=== PATIENT | female | born 1980 | race Caucasian/White ===

== ENCOUNTER 2021-10-28 23:08 | Emergency (ER) | payer MEDICAID, SELFPAY | END 2021-10-29 00:08 | disposition left against medical advice (07) | PROVIDERS: Emergency Provider Emergency Medicine | DX: Z20.822 Contact with and (suspected) exposure to COVID-19 (principal) ==

== ENCOUNTER 2021-10-29 00:29 | Emergency (ER) | payer MEDICAID, SELFPAY ==
--- NOTE | ~2021-10-29 | XR_ITS ---
EXAMINATION: XR CHEST CLINICAL INFORMATION: Shortness of breath COMPARISON: None TECHNIQUE: Frontal view of the chest was obtained. FINDINGS: The lungs are well expanded. There is no focal consolidation, edema, or effusion. No pneumothorax. The cardiomediastinal silhouette is within normal limits. No acute osseous abnormality. XR/XR chest 1V IMPRESSION: Clear lungs.
[2021-10-29 00:33] VITALS: BP 181/100; PULSE 88; RESP 18; TEMP 36.6; O2SAT 100; BMI 43.8
[2021-10-29 00:58] LABS: COVID-19 Test Negative (Negative)
--- NOTE | 2021-10-29 01:46 | ED.GENADULT ---
HPI - General Adult General Chief complaint: General Medical Stated complaint: Covid exposure/no symptoms Time Seen by Provider: 10/29/21 01:46 Source: patient Mode of arrival: ambulatory History of Present Illness HPI narrative: 41-year-old female who presents after exposure to who is COVID positive but otherwise is asymptomatic. Related Data Allergies Allergy/AdvReac Type Severity Reaction Status Date / Time No Known Allergies Allergy Verified 10/29/21 00:32 Review of Systems Review of Systems: Pertinent positives and negatives as stated in HPI 10 point review of systems is otherwise negative PMFSH Past Medical History Source: nursing notes reviewed Social History Social History Advance Directives: No Physical Exam Vital Signs: Vital Signs: Last Vital Signs Temp 98 F 10/29/21 00:33 Pulse 88 10/29/21 00:33 Resp 18 10/29/21 00:33 BP 181/100 H 10/29/21 00:33 Pulse Ox 100 10/29/21 00:33 BMI result Body Mass Index 43.8 VITAL SIGNS: Reviewed. GENERAL: Well developed, well nourished, in no acute distress. HEAD: Normocephalic/atraumatic EYES: PERRLA, EOMI LUNGS: No audible wheeze, no tachypnea SpO2<100> CARDIOVASCULAR: Regular rate and rhythm without noted murmurs ABDOMEN: Soft, non-tender, non-distended with bowel sounds NEUROLOGIC: Alert and oriented x 4 Course Course Course Narrative: 41-year-old female with history and clinical presentation consistent with close COVID-19 exposure. Patient is otherwise asymptomatic and on review all investigations is negative for acute findings. Discussed with patient prudent retesting time frame, but strongly encouraged patient to consider herself positive given the close COVID-19 exposure that she has experienced. Medical Decision Making Lab Data Labs: Lab Results 10/29/21 Range/Units 00:38 COVID-19 (CECY) Negative (Negative) COVID-19 Clin Com See Note Discharge Plan Discharge Clinical Impression: Lab test negative for COVID-19 virus, Close exposure to COVID-19 virus Patient Disposition: Home, Self-Care Instructions: COVID-19 (Coronavirus Disease 2019) (ED) Additional Instructions: Please follow the current CDC guidelines for COVID 19 exposure. Recommend that you get retested in 3-4 days.
== END 2021-10-29 01:55 | disposition home or self-care (01) ==
PROVIDERS: Emergency Provider Student in an Organized Health Care Education/Training Program
DX: Z20.822 Contact with and (suspected) exposure to COVID-19 (principal)
CPT/HCPCS: 36415; 71045; 87635; 99283

== ENCOUNTER 2021-10-30 11:59 | Emergency (ER) | payer MEDICAID, SELFPAY ==
[2021-10-30 12:13] VITALS: BP 154/98; PULSE 90; RESP 18; TEMP 36.4; O2SAT 96; BMI 29.0
--- NOTE | 2021-10-30 12:29 | ED_ITS ---
HPI - General Adult General Chief complaint: General Medical Stated complaint: covid test chest tightness sore throat Time Seen by Provider: 10/30/21 12:19 Source: patient Mode of arrival: ambulatory Limitations: no limitations History of Present Illness HPI narrative: 41-year-old female here with reports of headache, sore throat, cough some chest tightness for several days. Patient tells me her tested positive for COVID. She was seen here on October 29 and tested negative for COVID. She is here for a 2nd test. Tells me she is having continued symptoms. Of note the patient had a chest x-ray and a COVID test on the which are both negative. Patient has received a [employer] vaccine. No shortness of breath, fevers, chills, vomiting, diarrhea, abdominal pain. Has a history of asthma but ran out of her inhaler Related Data Allergies Allergy/AdvReac Type Severity Reaction Status Date / Time No Known Allergies Allergy Verified 10/29/21 00:32 Review of Systems Review of Systems: Yes all other systems are reviewed and are negative Constitutional: Constitutional: Reports no additional constitutional complaints, Denies body ache(s), Denies chills, Denies fever(s), Reports headache(s) and Denies weakness Eyes: Eyes: Reports no additional eye complaints and Denies change in vision ENT: Reports system reviewed and no additional complaints, except as documented, Denies dizziness, Reports headache(s), Denies nasal congestion, Denies nasal discharge, Denies neck pain and Reports sore throat Cardiovascular: Cardiovascular: Reports no additional cardiovascular complaints, Reports chest pain (Tightness), Denies leg edema and Denies dyspnea Respiratory: Respiratory: Reports no additional respiratory complaints, Reports cough and Denies dyspnea Gastrointestinal: Gastrointestinal: Reports no additional gastrointestinal complaints, Denies abdominal pain, Denies diarrhea, Denies nausea and Denies vomiting Genitourinary: Genitourinary: Reports no additional female genitourinary complaints and Denies urinary incontinence Musculoskeletal: Musculoskeletal: Reports no additional musculoskeletal complaints, Denies back pain, Denies arthralgias, Denies joint swelling, Denies neck pain, Denies numbness and Denies tingling Integumentary/Breasts: Skin/Breast: Reports system reviewed and no additional complaints, except as docu and Denies rash Neurologic: Reports system reviewed and no additional complaints, except as documented, Denies Abnormal speech present, Denies dizziness, Reports headache(s), Denies numbness, Denies tingling and Denies weakness PMFSH Past Medical History Attestation statement: The following information was validated with the patient. Source: old records reviewed and nursing notes reviewed Medical History No known health problems Social History Social History Advance Directives: No Advance Directives Information Provided: No Patient : No Physical Exam Vital Signs: Vital Signs: Last Vital Signs Temp 97.5 F 10/30/21 12:13 Pulse 90 10/30/21 12:13 Resp 18 10/30/21 12:13 BP 154/98 H 10/30/21 12:13 Pulse Ox 96 10/30/21 12:13 BMI result Body Mass Index 29.0 Const: General: cooperative, healthy appearing, comfortable and no acute distress Orientation/consciousness: patient oriented x3 Limitations: no limitations HENMT: Head: Yes normal to inspection Ears: hearing grossly normal bilaterally and TM's normal bilaterally General nose exam: Normal external nose present Face and sinus: Yes normal facial exam Mouth: Normal oral and palatal mucosa present Throat: Yes posterior oropharynx normal, Yes tonsils normal and Yes uvula midline Eyes: General: appearance normal, both eyes and all related structures Pupils: Equal, round and reactive pupils present Neck: Neck: Yes normal visual inspection Chest: Chest palpation & inspection: normal inspection of the chest Resp: Effort & Inspection: normal respiratory effort Auscultation: clear to auscultation bilaterally Cardio: Rate: regular rate Rhythm: regular rhythm Peripheral pulses: Peripheral pulses 2+ throughout GI: Inspection: Yes normal to inspection Palpation (GI): Soft to palpation and nontender Auscultation: normal bowel sounds Back/Spine/Pelvis: Thoracic/Lumbar Spine: thoracic and lumbar spine normal to inspection Skin: General skin exam: no rashes or lesions noted Neuro: General: patient oriented x3, no focal motor deficits and normal sensation to monofilament Cranial nerves: Yes Equal, round and reactive pupils present Cognition (Neuro): normal cognition Speech: No Abnormal speech present Gait exam (Neuro): Normal gait present Motor exam (neuro): 5/5 motor strength present throughout Extrem: General: Yes normal to inspection, Yes no pedal edema and Yes no calf tenderness Course Course Course Narrative: 41-year-old female with history of asthma here with reports of headache, sore throat, chest tightness and cough for several days. Patient's is positive for COVID. She was seen here on the and had a negative chest x-ray and COVID test. She is here for repeat test. Symptoms have continued. Exam is benign. Vitals are stable. Will check COVID screen. Patient ran out of her albuterol so will order 2 puffs of albuterol here with a spacer and instruction 1300-COVID test is negative. Due to close exposure of a COVID positive patient with continued symptoms recommended retesting in 48 hours if she continues to have symptoms. Reviewed worrisome signs and symptoms of when to return to the emergency department. Comfortable discharge home. Medical Decision Making Medical Records Medical records reviewed: Yes I reviewed the patient's medical records. Lab Data Lab results reviewed: Yes I reviewed the patient's lab results. Labs: Lab Results 10/30/21 Range/Units 12:27 COVID-19 ([facility]) Negative (Negative) COVID-19 Clin Com See Note Discharge Plan Discharge Clinical Impression: Close exposure to COVID-19 virus, Lab test negative for COVID-19 virus, Acute viral syndrome Patient Disposition: Home, Self-Care Instructions: Viral Syndrome (ED) Additional Instructions: COVID test is negative RUN: 10/30/21 1305 PAGE 1 [facility] [address] [place] [id number] Flight Test Supervisor: Jose Funez M.D. Specimen Inquiry Name: Dax Gutierrezcass Age/Sex: 41/F : 1980 Unit#: [id number] Attend Dr: Shira Hernandez DO Re10/30/21 Status: REG [facility]: SPEC : [id number] ZAIN: 10/30/21 STATUS: COMP REQ : [id number] RECD: 10/30/21 [facility] DR: Zuly Munguia NP COMP: 10/30/21 ENTERED: 10/30/[address]: RIMA GILL MD ORDERED: COVID-19 ID NOW Test Result Flag Reference Site IDNOW Serial# [id number] COVID-19 NAAT Negative Negative COVID-19 Note See Note Results are for the identification of SARS-CoV2 RNA. The SARS-CoV2 RNA is generally detectable in respiratory samples during the acute phase of infection. Positive results are indicative of the presence of SARS-CoV-2 RNA; clinical correlation with patient history and other diagnostic information is necessary to determine patient infection status. Positive results do not rule out bacterial infection or co-infection with other viruses. Testing facilities within the [facility] and its territories are required to report all positive results to the appropriate public health authorities. Negative results should be treated as presumptive and, if inconsistent with clinical signs and symptoms or necessary for patient management, should be tested with different authorized or cleared molecular tests. Negative results do not preclude SARS-CoV2 RNA infection and should not be used as the sole basis for patient management decisions. Negative results should be considered in the context of a patient's recent exposures, history and the presence of clinical signs and symptoms consistent with COVID-19. This test has been authorized by the FDA under an Emergency Use Authorization (EUA) for use by authorized laboratories. Testing performed on the [employer] ID NOW utilizing NAAT. Re-test in 48 hours for persistent symptoms Referrals: Rima Gill MD [Primary Care Provider] - 2 days Interventions: ED Discharge Assessment Last Done: 10/30/21 13:12 Discharge Date/Time: 10/30/21 13:12
[2021-10-30 12:49] LABS: COVID-19 Test Negative (Negative)
[2021-10-30] MEDS: Albuterol Sulfate 90 MCG 8 GM INHALER 2 PUFF INHALE (12:54)
== END 2021-10-30 13:12 | disposition home or self-care (01) ==
PROVIDERS: Nurse Practitioner Family; Emergency Provider Emergency Medicine; PCP Family Medicine
DX: B34.9 Viral infection, unspecified (principal); Z20.822 Contact with and (suspected) exposure to COVID-19; J02.9 Acute pharyngitis, unspecified; J45.909 Unspecified asthma, uncomplicated
CPT/HCPCS: 36415; 87635; 99283; 99284

== ENCOUNTER 2025-10-13 21:06 | Emergency (ER) | payer OTHER, SELFPAY ==
--- OUTSIDE RECORDS SUMMARY | 2022-06-08 15:09 | XMS_ITS | Encounter Summary ---
Author Organization [facility] Address [address] [place] [phone] Phone Care Team Providers Care Cat Operator Name Role Phone Joe Roberson MD Unavailable Tania Gill MD Primary Care Provider Tania Gill MD Unavailable [phone] Encounter Details Date Type Department Care Team (Late st Contact Info) Description 06/08/2022 4:09 PM EDT Hospital Encounter [facility] [address] [place] [id number] Ana Maria Epstein, ELEMENTARY ASSISTANT PRINCIPAL [address] [place] [id number] Social History Tobacco Use Types Packs/Day Years Used Date Smoking Tobacco: Never Smokeless Tobacco: Never Alcohol Use Standard Drinks/Week Comments Never 0 (1 standard drink = 0.6 oz pur e alcohol) Child or Family Care Answer Date Record ed Do you have problems with on e of the following making it difficult for you to work, study, or receive health care? No 01/12/2021 Education Answer Date Recorded Are you interested in more education? Not on wagner e 03/04/2023 Are you concerned about learning? Not on file 03/04/2023 No 03/04/2023 No 03/04/2023 Food Answer Date Recorded Within the past 6 months we worried whether our food would run out before we got money to buy more. I choose not to answer 01/12/2021 Within the past 6 months the food we bought just didn't last and we didn't have enough money to get more. I choose not to answer 01/12/2021 Paying for Meds Answer Date Recorded Do you have trouble paying for medicines? No 01/12/2021 Paying Utility Bills Answer Date Record ed Do you have trouble paying your heating or elect ricity bill? Yes 01/12/2021 Transportation Answer Date Recorded Has the lack of transportati on kept you from medical appointments or from getting medications? No 01/12/2021 Digital Access Answer Date Recorded No 04/04/2023 No 04/04/2023 Reliable internet access at home? Not on file 04/04/2023 Device with a working camera? Not on file Comments No Sex and Gender Information Value Date Recorded Sex Assigned at Female 03/13/2019 10:50 PM EDT Legal Sex Female 9:19 PM EDT Gender Identity Female 03/13/2019 10:50 PM EDT Sexual Orientation Straight 03/13/2019 10 :50 PM EDT documented as of this encounter Functional Status * Calculated C-SSRS Risk Score (Lifetime/Recent) Answer Date of Assessment Author No Risk Indicated 06/16/2022 12:07 PM EDT Jessi Zavala RN * [place] Suicide Severity Rating Scale (Screener/Recent Self-Report) Question Answer Date of Assessment Author 1. Wish to be (Past 1 Month) No 022 12:07 PM EDT Jessi Miranda RN 2. Non-Specific Active Suici luis m Thoughts (Past 1 Month) No 06/16/2022 12:07 PM EDT Sabi Miranda RN 6. Suicidal Behavior (Lifetime) No 12:07 PM EDT Jessi Miranda RN documented as of this encounter Plan of Treatment Not on file documented as of this encounter Procedures Procedure Name Priority Date/Time Associated Diagnosis Comments XR CHEST PA AND LATERAL 2 VIEWS Urgent/patient waiting 06/08/2022 4:21 PM EDT Fever, unspecified documented in this encounter Results * XR CHEST PA AND LATERAL 2 VIEWS (06/08/2022 4:21 PM EDT) Anatomical Region Laterality Modality Chest Computed Radiogr aphy 06/08/2022 4:28 PM EDT Impressions 06/08/2022 4:29 PM EDT No acute abnormality. Narrative 06/08/2022 4:29 PM EDT XR CHEST PA AND LATERAL 2 VIEWS COMPARISON: None. FINDINGS: Devices/Tubes/Lines: None. Lungs: No focal consolidation or pulmonary edema. Pleura: No pleural effusions or pneumothorax. Heart/Mediastinum: Normal cardiomediastinal silhouette. Bones/Soft Tissues: No significant skeletal abnormality. Procedure Note Nat Brito MD - 06/08/2022 XR CHEST PA AND LATERAL 2 VIEWS COMPARISON: None. FINDINGS: Devices/Tubes/Lines: None. Lungs: No focal consolidation or pulmonary edema. Pleura: No pleural effusions or pneumothorax. Heart/Mediastinum: Normal cardiomediastinal silhouette. Bones/Soft Tissues: No significant skeletal abnormality. IMPRESSION: No acute abnormality. Ana Maria Epstein ELEMENTARY ASSISTANT PRINCIPAL IMG XR CHEST Final Resul t documented in this encounter Visit Diagnoses Not on filedocumented in this encounter Additional Health Concerns Infection Onset Date Last Indicated Resolved Time CoV-Risk 06/05/2022 06/05/2022 06/16/2022 1:22 AM EDT CoV-Risk Comment:Per Ambulatory Triage Form 06/25/2022 06/25/202206/25 1:31 PM EDT CoV-Presumed Comment:COVID-19 Added 06/25/2022 06/25/2022 06/26/2022 12:09 PM EDT CoV-Risk 06/25/2022 06/25/2022 06/26/2022 12:0 9 PM EDT COVID-19 06/25/2022 06/25/2022 07/16/2022 1:21 AM EDT COVID-19 07/28/2023 07/28/2023 08/18/2023 1:21 AM EDT CoV-Risk Comment:Per Ambulatory Triage Form 07/29/2023 07/29/202307/29 10:47 AM EDT Assessment Noted Time PHQ-2 Depression Total Score: 0 01/13/20 3:32 PM EST documented as of this encounter Care Teams Cat Operator Relationship Specialty Start Date End Date Tania Gill MD [facility]. [address] [place] [id number] PCP - General Family Medicine 12/12/20 Joe Roberson MD [address] [place] [id number] Historical LMR Provider 08/24/17 Tania Gill MD 15 [facility]. [address] [place] [address] Insurance Assigned Provider 05/16/21 documented as of this encounter Additional Source Comments The information contained in this document represents components of the legal health record. It is not the complete legal health record.[facility]
[2025-10-13 21:08] VITALS: BP 175/125; PULSE 112; RESP 20; TEMP 36.8; O2SAT 100; BMI 50.4
--- NOTE | 2025-10-13 21:16 | ECG_ITS ---
Test Reason : ELEVATED BP Blood Pressure : */* mmHG Vent. Rate : 111 BPM Atrial Rate : 111 BPM P-R Int : 164 ms QRS Dur : 94 ms QT Int : 338 ms P-R-T Axes : 54 14 39 degrees QTcB Int : 459 ms Sinus tachycardia Possible Left atrial enlargement Incomplete right bundle branch block Borderline ECG No previous ECGs available Referred By: Generic ED Physician Electronically Signed By: NEELAM ANGEL MD
[2025-10-13 21:34] LABS: MANUAL DIFF FLAG NO
[2025-10-13 21:35] LABS: Hematocrit 38.5 % (37.0-47.0); Hemoglobin 11.8 g/dl (12.0-16.0); Imm Gran Abs Auto 0.10 X10*3/uL (0.00-0.03); Imm Gran Pct Auto 0.8 % (0.0-0.4); Lymphocytes Absolute Auto 2.3 X10*3/uL (1.2-4.9); Mean Corpuscular HGB Conc 30.6 g/dl (31.0-35.0); Mean Corpuscular Hemoglobin 23.4 pg (27.0-33.0); Mean Corpuscular Volume 76.2 fL (80.0-98.0); NRBC Abs Auto 0.000 X10*3/uL (0.0-0.012); NRBC Pct Auto 0.0 /100WBC (0.0-0.2); Platelet Count 320 X10*3/uL (160-400); Red Blood Count 5.05 X10*6/uL (4.20-5.50); White Blood Count 12.6 X10*3/uL (4.8-10.8)
[2025-10-13 21:44] LABS: Anion Gap 14 (12-20); Blood Urea Nitrogen 7 mg/dL (9-16); Calcium 9.2 mg/dL (8.4-10.2); Carbon Dioxide 24 mmol/L (22-29); Chloride 106 mmol/L (96-108); Creatinine Clr Calc Pharmacy 202.1; Estimated Glomerular Filt Rate > 60; Potassium 3.6 mmol/L (3.3-5.1); Sodium 140 mmol/L (135-145)
[2025-10-14 00:08] VITALS: BP 146/83; PULSE 95; RESP 18; TEMP 36.8; O2SAT 100
--- OUTSIDE RECORDS SUMMARY | 2025-10-14 00:45 | XMS_ITS | Clinical Summary ---
Author Organization [facility] Address [address] [place] [address] Care Team Providers Care Icu Specialist Name Role Phone Tania Gill Primary Care Provider [phone] Allergies Active Allergy Reactions Criticality Noted Date Comments Acetaminophen Headache,Other (see comments) 08/2019 Amoxicillin Rash Low 09/16/2021 Cephalexin Itching,Rash Medium 06/15/2022 Metformin Other (see comments) 02/07/2021 Medications cetirizine (ZyrTEC) 10 mg tablet Take 10 mg by mouth daily. Active ibuprofen (MOTRIN) 600 mg tablet Take 600 mg by mouth every 6 hours as needed. Active PNV cmb#95-ferrous fumarate-FA 28 mg iron- 800 mcg tablet Take 1 tablet by mouth daily. Active A LIPOIC BIUQ-SKGHOI-IKFI ERINE ORAL Take 1,500 mg by mouth daily. Active Active Problems Problem Noted Date Diagnosed Date PCOS (polycystic ovarian syndrome) 02/24/2021 Overview (01/11/2024): Last Assessment & Plan: Check BMP given recent restart spironolactone. Do NOT take this while . Social History Tobacco Use Types Packs/Day Years Used Date Smoking Tobacco: Never Smokeless Tobacco: Never Tobacco Cessation:Counseling Given: Not Answered Alcohol Use Standard Drinks/Week Comments Not Currently 0 (1 standard drink = 0.6 oz pur e alcohol) Comments No Sex and Gender Information Value Date Recorded Sex Assigned at Female 11/09/2023 2:46 PM EST Legal Sex Female 2:44 PM EST Gender Identity Female 11/09/2023 2:46 PM EST Sexual Orientation Not on file Last Filed Vital Signs Vital Sign Reading Time Taken Comments Blood Pressure 148/92 03/27/2024 3:47 PM EDT Pulse - - Temperature - - Respiratory Rate - - Oxygen Saturation - - Inhaled Oxygen Concentration - - Weight 135.2 kg (298 lb) 03/27/2024 3:47 PM EDT Height - - Body Mass Index - - Plan of Treatment Health Maintenance Due Date Last Done Comments Cervical Cancer Screening 1980 HIV Screening 1980 HPV and Pap Smear 1980 Pap Smear 1980 Varicella Vaccines (1 of 2 - 13+ 2-dose series) 1995 Hepatitis B Vaccines (1 of 3 - 19+ 3-dose series) 2001 DTaP,Tdap,and Td Vaccines (8 - Td or Tdap) 07/15/2019 07/15/2009, 07/15/2009, 01/21/1997, Additional history exists Mammogram 2022 Alcohol/Substance Use Screening 11/07/2024 Depression Screening and Follow-Up 11/07/2024 Social Drivers of Health Annual Screening 11/07/2024 Influenza Vaccine (#1) 2025 COVID-19 Vaccine (2024- season) 2025 02/11/2021 Pneumococcal Vaccine: Pediatric (0-5 Years) and At-Risk Patients (6-50 Years) Aged Out 07/11/2008 No longer eligible based on patient's age to complete this topic Hepatitis C Screening Completed 08/11/[address] [facility] Advance Directives Healthcare Agents on File Name Relationship Healthcare Agent Relationshi p Communication Olegario Leyva Spouse Health Care Agent Care Teams Icu Specialist Relationship Specialty Start Date End Date Tania Gill [address] [id number] PCP - General Family Medicine 11/09/23
--- OUTSIDE RECORDS SUMMARY | 2025-10-14 00:45 | XMS_ITS | Encounter Summary ---
Author Organization [facility] Address [address] [place] [address] Phone Care Team Providers Care Hatch Boss Name Role Phone Joe Roberson MD Unavailable Zayra Zuniga MD Unavailable [phone] Je Rodarte MD Unavailable Zayra Zuniga MD Primary Care Provider Tania Gill MD Primary Care Provider Pcp, Unknown Primary Care Provider Unavailabl e Pcp, Unknown Primary Care Provider Unavailabl e Tania Gill MD Primary Care Provider Tania Gill MD Unavailable Encounter Details Date Type Department Care Team (Late st Contact Info) Description 01/18/2019 Ancillary Orders Virtual Department 30 [place], [place] [id number] Tania Gill MD [address] [facility] [address] [place] [address] Nodule of soft tissue; Multiple lipomas Social History Tobacco Use Types Packs/Day Years Used Date Smoking Tobacco: Never Assessed Comments Unknown Sex and Gender Information Value Date Recorded Sex Assigned at Female 03/13/2019 10:50 PM EDT Legal Sex Female 9:19 PM EDT Gender Identity Female 03/13/2019 10:50 PM EDT Sexual Orientation Straight 03/13/2019 10 :50 PM EDT documented as of this encounter Plan of Treatment Not on file documented as of this encounter Results * US Chest Wall (01/19/2019 3:00 PM EDT) Anatomical Region Laterality Modality Chest Ultrasound 01/19/2019 3:24 PM EDT Impressions 01/19/2019 3:27 PM EDT Well-circumscribed mass as described above corresponding to the palpable lump. Although the ultrasound appearance is not highly specific, it would be consistent with a lipoma POS [id number] Narrative 01/19/2019 3:27 PM EDT The patient identifies a palpable lump just below the left clavicle. In the area of the palpable lump, within the subcutaneous fat, there is a spindle shaped, well-circumscribed area which is minimally hyperechoic compared to the surrounding fat with no identifiable internal vascularity measuring about 8 x 15 x 19 mm. Procedure Note Rg Rutledge MD - 01/19/2019 The patient identifies a palpable lump just below the left clavicle. In the area of the palpable lump, within the subcutaneous fat, there is aspindle shaped, well-circumscribed area which is minimally hyperechoiccompared to the surrounding fat with no identifiable internal vascularitymeasuring about 8 x 15 x 19 mm. IMPRESSION: Well-circumscribed mass as described above corresponding to the palpablelump. Although the ultrasound appearance is not highly specific, it wouldbe consistent with a lipoma POS [id number] us Tania Gill MD IMG US CHEST Final Result documented in this encounter Visit Diagnoses Diagnosis Nodule of soft tissue Multiple lipomas Nodule of soft tissue Multiple lipomas documented in this encounter Additional Health Concerns Infection Onset Date Last Indicated Resolved Time CoV-Exposed Comment:Recent close contact documented in the COVID-19 PCR/PRO order 10/22/2021 11/02/2021 11/26/2021 1:[address] CoV-Risk Comment:Per Ambulatory Triage Form 11/02/2021 11/05/202111/15 1:22 AM EST CoV-Risk 06/05/2022 06/05/2022 06/16/2022 1:22 AM EDT CoV-Risk Comment:Per Ambulatory Triage Form 06/25/2022 06/25/202206/25 1:31 PM EDT CoV-Presumed Comment:COVID-19 Added 06/25/2022 06/25/2022 06/26/2022 12:09 PM EDT CoV-Risk 06/25/2022 06/25/2022 06/26/2022 12:0 9 PM EDT COVID-19 06/25/2022 06/25/2022 07/16/2022 1:21 AM EDT COVID-19 07/28/2023 07/28/2023 08/18/2023 1:21 AM EDT CoV-Risk Comment:Per Ambulatory Triage Form 07/29/2023 07/29/202307/29 10:47 AM EDT documented as of this encounter Care Teams Hatch Boss Relationship Specialty Start Date End Date Zayra Zuniga MD [address] [place] [phone] [email or web address] PCP - General Internal Medicine 06/20/18 01/18/19 Tania Gill MD [address] [place] [address] [email or web address] PCP - General Family Medicine 01/19/19 07/05/19 Pcp, Unknown PCP - General 07/06/19 12/03/20 Pcp, Unknown PCP - General 12/04/20 12/11/20 Tania Gill MD 15 [facility] [address] [place] [address] [email or web address] PCP - General Family Medicine 12/12/20 Joe Roberson MD [address] [place] [address], [facility] 202 [place] [address] [email or web address] Historical LMR Provider 08/24/17 Zayra Zuniga MD [address] [place] [address] [phone] [email or web address] Historical LMR Provider 08/24/1711/14 Je Rodarte MD [address] [place] [phone] Historical LMR Provider 08/24/17 2 Tania Gill MD [address] [facility] [address] [place] [address] [email or web address] Insurance Assigned Provider 05/16/21 07/16/23 documented as of this encounter Additional Source Comments The information contained in this document represents components of the legal health record. It is not the complete legal health record.[facility]
--- OUTSIDE RECORDS SUMMARY | 2025-10-14 00:45 | XMS_ITS | Encounter Summary ---
Author Organization [facility] Address [email or web address] [place] [address] Phone Care Team Providers Care Java Lead Architect Name Role Phone Joe Roberson MD Unavailable Zayra Zuniga MD Unavailable [phone] Je Rodarte MD Unavailable Tania Gill MD Primary Care Provider [phone] Tania Gill MD Unavailable [phone] Encounter Details Date Type Department Care Team (Late st Contact Info) Description 01/14/2021 Procedure Pass Non-Invasive Cardiology 30 [place] [address] Social History Tobacco Use Types Packs/Day Years [...] Answer Date Recorded Are you interested in help w ith more adult education (for example, completing high school, GED, job training, learning the [place] language, technical skills, or developing parenting skills)? No 01/12/2021 Are you concerned about learning? Not on file 01/12/2021 Not on file 01/12/2021 Not on file 01/12/2021 Food Answer Date Recorded Within the past [...] appointments or from getting medications? No 01/12/2021 Comments Unknown Sex and Gender Information Value Date Recorded Sex Assigned at Female 03/13/2019 10:50 PM EDT Legal Sex Female 9:19 PM EDT Gender Identity Female 03/13/2019 10:50 PM EDT Sexual Orientation Straight 03/13/2019 10 :50 PM EDT documented as of this encounter Plan of Treatment Not on file documented as of this encounter Visit Diagnoses Not on filedocumented [...] documented as of this encounter Care Teams Java Lead Architect Relationship Specialty Start Date End Date Tania Gill MD 15 [facility] 201 [place] [address] PCP - General Family Medicine 12/12/20 Joe Roberson MD [address] [place] [phone] Historical LMR Provider 08/24/17 Zayra Zuniga MD [address] [place] [phone] [email or web address] Historical LMR Provider 08/24/1711/14 Je Rodarte MD [facility] [place] [phone] Historical LMR Provider 08/24/17 2 Tania Gill MD [address] [facility] [place] [address] Insurance Assigned Provider 05/16/21 07/16/23 documented as of this encounter Additional Source Comments The information contained in this document represents components of the legal health record. It is not the complete legal health record.[facility]
--- OUTSIDE RECORDS SUMMARY | 2025-10-14 00:45 | XMS_ITS | Encounter Summary ---
Author Organization [facility] Address [address] [place] [address] Phone Care Team Providers Care Information Clerk Brokerage Name Role Phone Joe Roberson MD Unavailable Tania Gill MD Primary Care Provider Tania Gill MD Unavailable [phone] Encounter Details Date Type Department Care Team (Late st Contact Info) Description 06/14/2022 Transcribe Orders Virtual Department 30 [place] [address] Tania Gill MD [address] [facility] [address] [place] [address] [email or web address] Social History Tobacco Use Types Packs/Day Years [...] high school, GED, job training, learning the Mohawk language, technical skills, or developing parenting skills)? [...] 12:07 PM EDT Jessi Zavala RN * [place] Suicide Severity Rating Scale (Screener/Recent Self-Report) Question Answer Date of Assessment Author 1. Wish to be (Past 1 Month) No 022 12:07 PM EDT Jessi Miranda RN 2. Non-Specific Active Suici luis m Thoughts (Past 1 Month) No 06/16/2022 12:07 PM EDT Sabi Miarnda RN 6. Suicidal Behavior (Lifetime) No 12:07 [...] documented as of this encounter Care Teams Information Clerk Brokerage Relationship Specialty Start Date End Date Tania Gill MD [address] [place] [address] PCP - General Family Medicine 12/12/20 Joe Roberson MD [address] [place] [phone] [email or web address] Historical LMR Provider 08/24/17 Tania Gill MD [address] [place] [phone] Insurance Assigned Provider 05/16/21 documented as of this encounter Additional Source Comments The information contained in this document represents components of the legal health record. It is not the complete legal health record.[facility]
--- OUTSIDE RECORDS SUMMARY | 2025-10-14 00:45 | XMS_ITS | Encounter Summary ---
Author Organization [facility] Address [address] [place] [phone] Phone Care Team Providers Care Carbonating Stone Cleaner Name Role Phone Joe Roberson MD Unavailable Tania Gill MD Primary Care Provider [phone] Tania Gill MD Unavailable [phone] Encounter Details Date Type Department Care Team (Late st Contact Info) Description 06/16/2022 Procedure Pass [facility], Ct Scan - [address] [address] Social History Tobacco Use Types Packs/Day Years [...] high school, GED, job training, learning the [place] language, technical skills, or developing parenting skills)? [...] or from getting medications? No 01/12/2021 Comments No Sex and Gender Information Value [...] 12:07 PM EDT Jessi Zavala RN * [place] Suicide Severity Rating Scale (Screener/Recent Self-Report) Question [...] documented as of this encounter Care Teams Carbonating Stone Cleaner Relationship Specialty Start Date End Date Tania Gill MD [address] [place] [phone] PCP - General Family Medicine 12/12/20 Joe Roberson MD [address] [place] [phone] Historical LMR Provider 08/24/17 Tania Gill MD [address] [place] [phone] Insurance Assigned Provider 05/16/21 documented as of this encounter Additional Source Comments The information contained in this document represents components of the legal health record. It is not the complete legal health record.[facility]
--- OUTSIDE RECORDS SUMMARY | 2025-10-14 00:45 | XMS_ITS | Encounter Summary ---
Author Organization [facility] Address [address] [place] [address] [place] [address] Phone Care Team Providers Care Sanitation Worker Name Role Phone Joe Roberson MD Unavailable Zayra Zuniga MD Unavailable Je Rodarte MD Unavailable Tania Gill MD Primary Care Provider Pcp, Unknown Primary Care Provider Unavailabl e Pcp, Unknown Primary Care Provider Unavailabl e Tania Gill MD Primary Care Provider [phone] Tania Gill MD Unavailable [phone] Reason for Referral * Consultation (Elective) - Closed Specialty Diagnoses / Procedures Referred By rJ grewal Referred To Contact Genetics Diagnoses Family history of cancer Tania Gill MD Phone: tel: fax: mailto: [address] [address] Phone: tel: Referral ID Status Reason Start Date Expiration Date Visits Re quested Visits Authorized [id number] Closed 01/25/2019 01/26/2020 1 1 Encounter Details Date Type Department Care Team (Latest Contact Info) Description 01/25/2019 Transcribe Orders Virtual Department 30 [place] [address] Tania Gill MD [address] [place] [phone] [email or web address] Family history of cancer (Primary Dx) Social History Tobacco Use Types Packs/Day Years Used Date Smoking Tobacco: Never Assessed Comments Unknown Sex and Gender Information Value Date Recorded Sex Assigned at Female 03/13/2019 10:50 PM EDT Legal Sex Female 9:19 PM EDT Gender Identity Female 03/13/2019 10:50 PM EDT Sexual Orientation Straight 03/13/2019 10 :50 PM EDT documented as of this encounter Plan of Treatment Scheduled Referrals Name Type Priority Associated Diagnoses Order Schedule Ambulatory referral to [facility] Cancer Genetics Outpatient Referral Routine Family history of cancer Ordered: 01/25/2019 documented as of this encounter Visit Diagnoses Diagnosis Family history of cancer- Primary Family history of unspecified malignant neoplasm documented in this encounter Additional Health Concerns [...] documented as of this encounter Care Teams Sanitation Worker Relationship Specialty Start Date End Date Tania Gill MD [address] [facility] 201 [place] [address] [email or web address] PCP - General Family Medicine 01/19/19 07/05/19 Pcp, Unknown PCP - General 07/06/19 12/03/20 Pcp, Unknown PCP - General 12/04/20 12/11/20 Tania Gill MD [address] [place] [address] [email or web address] PCP - General Family Medicine 12/12/20 Joe Roberson MD [address] [place] [phone] [email or web address] Historical LMR Provider 08/24/17 Zayra Zuniga MD [address] [place] [phone] Historical LMR Provider 08/24/1711/14 Je Rodarte MD [address] [place] [phone] Historical LMR Provider 08/24/17 2 Tania Gill MD [address] [place] [address] [email or web address] Insurance Assigned Provider 05/16/21 07/16/23 documented as of this encounter Additional Source Comments The information contained in this document represents components of the legal health record. It is not the complete legal health record.[facility]
--- OUTSIDE RECORDS SUMMARY | 2025-10-14 00:45 | XMS_ITS | Clinical Summary ---
Author Organization [facility] Address [address] [place] [phone] Phone Care Team Providers Care Car Deliverer Name Role Phone Joe Roberson MD Unavailable Tania Gill MD Primary Care Provider [phone] Allergies Active Allergy Reactions Criticality Noted Date Comments Acetaminophen Headaches,Other (See Comments) Amoxicillin Rash Low 09/16/2021 Cephalexin Itching,Rash Medium 06/15/2022 Metformin Other (See Comments) 02/07/2021 Medications ibuprofen (ADVIL,MOTRIN) 600 MG tablet Take 600 mg by mouth every 6 (six) hours as needed for pain (specific location in comments). 600/800MG due to degenerative disk disease Active cetirizine (ZYRTEC) 10 MG tablet Take 10 mg by mouth daily. Active albuterol 90 mcg/actuation inhaler Inhale 2 puffs into the lungs every 4 (four) hours as needed for wheezing or shortness of breath/dyspnea. 8 g Active Additional Information Patient not taking.Reported on 08/11/2022 vitamins with ferrous fumarate- folic acid 28 mg iron- 800 mcg Tab Take 1 tablet by mouth daily. Active A LIPOIC UOKZ-PVOYUQ-FLL BERINE ORAL Take 1,500 mg by mouth daily. Active Medication-Free Text Take 2,200 mg by mouth daily. IVA-INOSTIOL Active Active Problems Problem Noted Date Diagnosed Date Malaise and fatigue 02/29/2024 Assessment & Plan (02/29/2024 4:04 PM EDT): While the long COVID may well be contributory, Uzma Washington describes waking up more than hourly every night from pain in multiple joints. I think anybody would be tired if they slept so poorly, on top of working as many hours that she does both at work and in caring for her in-laws. She needs to have her pain treated in order to sleep well and she needs to sleep well to have energy. My guess is that a lot of things will feel better after she gets adequate treatment from physiatry. I hope she is able to make and keep an appointment soon. Certainly we can check a CBC to see if she is anemic since she has such heavy periods but I do not think her fatigue warrants any elaborate workup right now. 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 They think the problem may be her . CF screen negative. Assessment & Plan (08/11/2022 3:11 PM EDT): Our guide on infertility evaluation and some basic treatment steps was put in the after visit summary She defers any evaluation or treatment till after she gets her new insurance in a month Some basic labs were ordered today, she can also return to discuss the option of genetic carrier screening Left ovarian cyst 08/11/2022 Overview (08/11/2022): Incidental finding of 2 cysts measuring 4.7 cm in aggregate June 2022, initially on CT scan This is possibly hemorrhagic or endometriotic in nature Assessment & Plan (08/11/2022 3:09 PM EDT): Recommend repeat 6-8 weeks after the original, if enlarging will discuss possible removal Elevated LFTs 06/15/2022 Assessment & Plan (07/02/2022 10:42 AM EDT): Reviewed slowly resolving elevated LFTs. Updated CMP ordered for early next week to ensure continued improvement Lipoma of left upper extremity 02/26/2021 Lipoma of back 02/26/2021 Lipoma of abdominal wall 02/26/2021 Swelling of face 02/24/2021 Assessment & Plan (02/24/2021 1:22 PM EDT): Check albumin, TSH, CMP to r/o myxedema, r/o abnormal lytes or oncotic pressure. Need to check ADH too but I am having some trouble ordering this and will need to speak to the lab about how to do so. No evidence of CHF or anasarca on exam. Mediastinal tumor extremely unlikely despite this having happened to her father given relatively stable sx with no other indicators of malignancy for 15+years. Discussed that idiopathic facial swelling can happen in some women of reproductive age and if labs are normal, an ALPESH inhibitor can be helpful (as can a low-carb diet but she has already tried this). This should be deferred for now as it is contraindicated in . PCOS (polycystic ovarian syndrome) 02/24/2021 Assessment & Plan (02/24/2021 1:19 PM EDT): Check BMP given recent restart spironolactone. Do NOT take this while . Family history of heart attack 01/14/2021 Assessment & Plan (01/14/2021 1:12 PM EST): Needs lipid panel Palpitations 01/14/2021 Overview (04/07/2021): Normal court monitor 03/2021 Assessment & Plan (01/14/2021 1:19 PM EST): I am confused by her prior PCP's attributing this to hormone surges from PCOS, which to my knowledge neither surges nor causes tachycardia. Her last event monitor was nearly a decade ago and I am not optimistic we can get a record of it so I am re-ordering it now and we can treat based on EKG findings. Exam today is unremarkable. Monoallelic mutation of AUSTIN gene Overview (01/14/2021): gene mutation is NOS, coremaker helper told her if they do identify it in future it will likely confer risk of breast cancer. recommended annual mammogram Resolved Problems Problem Noted Date Diagnosed Date Resolved Date Infectious mononucleosis without complication 07/02/20 22 02/29/2024 Assessment & Plan (07/02/2022 10:42 AM EDT): Reviewed that mono symptoms typically slowly resolve within 4-8 weeks. Push fluids. Increased rest. Avoid contact sports, heavy lifting, horseplay, and rough sexual intercourse. Acute cough 07/02/2022 02/29/2024 Assessment & Plan (07/02/2022 10:45 AM EDT): Likely lingering cough from recent COVID infection. She is not experiencing any shortness of breath or progressive dyspnea. Has history of pneumonia. Chest x- ray ordered. Pt has history of bronchitis. She has used and inhaler in the past, but does not have one currently. Prescribed albuterol inhaler and reviewed use. Tessalon Perles prescribed for comfort. Push fluids, NSAIDs for discomfort, rest,, Vicks. F/U if symptoms worsen or fail to improve. To ER with dyspnea, hemoptysis, chest pain. Fever 06/15/2022 02/29/2024 Assessment & Plan (06/15/2022 12:41 PM EDT): Unclear etiology for symptoms. Pt's sore throat has improved with antibiotic, but has yet to resolve. While sore throat and exudate would not be consistent with Lyme. Her fever, fatigue, and mildly elevated LFTs are consistent with early Lyme. Will treat with doxycycline 100mg by mouth twice daily for 10 days. On doxycycline, do not take pills immediately before going to bed and swallow pills with plenty of water. Avoid direct sunlight, iron, antacids, and Pepto Bismol. Call your provider if you develop new ringing in your ears, new problems hearing, dizziness, difficulty swallowing, rash, abdominal discomfort, nausea, or diarrhea. Updated CBC and CMP ordered. Reviewed s/sx that would warrant emergent reevaluation. F/U if symptoms worsen or fail to improve. Multiple lipomas 01/14/2021 02/29/2024 Assessment & Plan (01/14/2021 1:11 PM EST): Statistically speaking, these tumors are much much more likely lipomas than anything malignant, but I certainly agree she should have the painful ones removed. Referred back to Dr Roberson whom she has seen before. Facial edema 01/14/2021 02/24/2021 Lipoma of upper extremity 04/12/2019 Dog bite of scalp 04/06/2019 01/14/2021 Immunizations Immunization Administration Dates Next Due COVID-19 (Pre-08/29) Dina Vaccine, rS-Ad26, PF 02/08/2021 DTP 07/08/1986, 4,05/28/1983,01/28,1982 DTaP 07/15/2009 MMR 09/03/1985 Measles 02/17/1984 Mumps 09/03/1985 Pneumococcal polysaccharide PPSV23 07/11/2008 Polio - OPV 01/30/1987,03/23/1983,1982 Rubella 09/03/1985 Td (adult),2 Lf Tetanus Toxo id, PF, Adsorbed 01/21/1997 Tdap 07/15/2009 Family History Medical History Relation Comments Cancer Father rhabdomyosarcoma Coronary artery disease Father Breast cancer Maternal Aunt Cancer Maternal Aunt Intestine, recur rent Coronary artery disease Maternal Grandfather Coronary artery disease Maternal Uncle Fibromyalgia Mother Heart disease Mother mitral valve pro lapse Lupus Mother Stroke Mother Esophageal cancer Paternal Aunt Coronary artery disease Paternal Grandfather Stomach cancer Paternal Grandmother All 3 of he r siblings had this too Coronary artery disease Paternal Uncle 1 Prostate cancer Paternal Uncle 1 Lung cancer Paternal Uncle 2 Brain cancer Unspecified Lung cancer Unspecified Relation Status Comments Father Maternal Aunt Maternal Grandfather Maternal Uncle Mother Alive Paternal Aunt Paternal Grandfather Paternal Grandmother Paternal Uncle 1 Paternal Uncle 2 Alive Unspecified Social History Tobacco Use Types Packs/Day Years [...] Orientation Straight 03/13/2019 10 :50 PM EDT Last Filed Vital Signs Vital Sign Reading Time Taken Comments Blood Pressure 130/80 02/27/2024 4:35 PM EDT Pulse 108 02/27/2024 4:35 PM EDT Temperature 37.2 C (99 F) 06/16/2022 4:42 PM EDT Respiratory Rate 18 06/16/2022 4:42 PM EDT Oxygen Saturation 98% 02/27/2024 4:35 PM EDT Inhaled Oxygen Concentration - - Weight 133.6 kg (294 lb 9.6 oz) 024 11:34 AM EST Height 170.2 cm (5' 7 ) 02/27/2024 4:35 PM EDT Body Mass Index 46.14 06/16/2022 12:05 PM EDT Plan of Treatment Health Maintenance Due Date Last Done Comments MAMMOGRAM 1980 Adult Td,Tdap Booster 07/15/2019 07/15/2009 , 01/21/1997 DEPRESSION SCREENING 01/12/2022 01/12/2021 INFLUENZA VACCINE (#1) 2025 COVID-19 VACCINE (2 2024-2 6 season) 2025 02/08/2021 PAP SMEAR 08/11/2025 08/11/2022 SCREENING FOR DIABETES 02/02/2027 02/03/2024 PNEUMOCOCCAL VACCINES (0-49 years) Aged Out 07/11/2008 No longer eligible b ased on patient's age to complete this topic HEPATITIS C SCREENING Completed 08/11/2022 , 08/11/2022, 08/11/2022 HIV ONE-TIME SCREENING (18-6 5 YEARS) Completed 08/11/2022 SMOKING STATUS SCREENING (On ce After 26 Yrs) Completed 02/29/2024 HEPATITIS A VACCINES Aged Out No long er eligible based on patient's age to complete this topic HIB VACCINES Aged Out No longer eligi ble based on patient's age to complete this topic MENINGOCOCCAL VACCINES (ACWY) Aged Out No longer eligible based on patient's age to complete this topic MENINGOCOCCAL VACCINES (B) Aged Out N o longer eligible based on patient's age to complete this topic Medical Devices Not on file Procedures Procedure Name Priority Date/Time Associated Diagnosis Comments HEPATITIS C ANTIBODY, QUALITATIVE Routine 08/11/2022 11:18 AM EDT Need for hepatitis C screening test PAP TEST Routine 08/11/2022 12:00 AM EDT from Last 3 Months or Most Recently Relevant to Health Maintenance Results * Hepatitis C antibody, qualitative (08/11/2022 11:18 AM EDT) HCV NON-REACTIV E NON-REACTI VE [facility] Blood 08/11/2022 11:1 8 AM EDT 08/11/2022 4:05 PM EDT us Tia Boyd MD LAB BLOOD BKR ORDERABLES Final R esult [address] [address] * Pap Smear (08/11/2022 12:00 AM EDT) 08/11/2022 08/12/2022 10: 00 AM EDT Narrative SEE NARRATIVE - 08/18/2022 4:46 PM EDT [address] [address] Racking Machine Operator: Jayshree Goldberg MD BUDGET TECHNICIAN Cytology Report FINAL DIAGNOSIS A. PAP SMEAR (SUREPATH) CE: SPECIMEN ADEQUACY: Satisfactory for evaluation; transformation zone present. INTERPRETATION: NEGATIVE FOR INTRAEPITHELIAL LESION OR MALIGNANCY. Reactive changes. Parakeratosis Electronically Signed Out By: MARLEY Cheng MD(ASCP) By his/her signature above, the pathologist listed as making the Final Diagnosis certifies that he/she has personally reviewed this case and confirmed or corrected the diagnosis. The Pap test is a screening test primarily for squamous cancers and precursors and has associated false-negative and false-positive results. New technologies such as liquid-based preparations may decrease but will not eliminate all false-negative results. Regular sampling and follow-up of unexplained clinical signs and symptoms are recommended to minimize false negative results. PROCEDURES/ADDENDA HPV Testing (Requested) Ordered Date: 08/12/2022 A. PAP SMEAR (SUREPATH) CE: Human Papilloma Virus Test Negative for high-risk human papillomavirus types 16, 18, 45 and the Other high risk probe set (Includes 31, 33, 35, 39, 51, 52, 56, 58, 59, 66, 68) by PingMe Onclarity HR-HPV analysis. Clinical correlation is advised. This HPV test was performed at [facility], [address] [place] [address]. This test has been FDA approved for SurePath cervical cytology specimens. The accuracy and precision of this test for all other specimen sources has been verified in the Cytopathology Laboratory of the [facility] and has not been cleared or approved by the U.S. Food and Drug Administration. Clinical correlation is advised. CLINICAL HISTORY Date of Last Menstrual Period: Not Provided Menstrual History: Unknown Treatment History: Concurrent BXs Other Clinical Conditions: Screening Pap SPECIMEN SOURCE A: PAP SMEAR (SUREPATH) CE Patient Name: ARNOLD PACHECO : 1980 (Age: 42) Sex: F Institution: [facility] Location: [facility] Date of Collection: 08/11/2022 Date of Reported: 08/18/2022 16:46 Results to: Tia Boyd MD Tia Boyd MD CYTOLOGY ORDERABLES Final Result SEE NARRATIVE from Last 3 Months or Most Recently Relevant to Health Maintenance Insurance [facility] DIRECT CONNE[employer]ARE DIRECT CONNECTORCARE DIRECT [facility] DIRECT Care Teams Car Deliverer Relationship Specialty Start Date End Date Tania Gill MD [address] [place] [phone] [email or web address] PCP - General Family Medicine 12/12/20 Joe Roberson MD [address] [place] [phone] [email or web address] Historical LMR Provider 08/24/17 Additional Source Comments The information contained in this document represents components of the legal health record. It is not the complete legal health record.[facility]
--- NOTE | 2025-10-14 01:00 | PC.NURSE ---
pt reports going to urgent care of throat/ ear pain starting earlier this week. while at the urgent care her b/p was 170/110. provider at urgent care advised pt to come to ED. Pt states she isn't concerned with the b/p as it has softened, but she would like a more mild antibiotic prescribed as the urgent care provider prescribed doxycycline, pt denies a amoxicillin allergy.
[2025-10-14 01:02] VITALS: BP 146/83; PULSE 95; RESP 18; TEMP 36.8; O2SAT 100
--- NOTE | 2025-10-14 01:24 | ED_ITS ---
HPI - General Adult General Chief complaint: General Medical Stated complaint: increased BP Time Seen by Provider: 10/14/25 00:38 Related Data Allergies Allergy/AdvReac Type Severity Reaction Status Date / Time No Known Allergies Allergy Verified 10/13/25 21:12 [facility] Past Medical History Medical History No known health problems Social History Social History Advance Directives: No Advance Directives Information Provided: No Patient : No Physical Exam ED Vital Signs: Vital Signs - 24 hr 10/13/25 21:08 10/14/25 00:08 10/14/25 01:02 Temperature 98.3 F 98.2 F 98.2 F Pulse Rate 112 H 95 95 Respiratory Rate 20 18 18 Blood Pressure 175/125 H 146/83 H 146/83 H Pulse Oximetry 100 100 100 Oxygen Delivery Method Room Air Room Air Room Air BMI result Body Mass Index 50.4 Medical Decision Making Medical Decision Making MDM Narrative: patient's weight is actually 145.9 kg. She is larger in size. The blood pressure cuff may not have been the correct size. When using the appropriate sized blood pressure cuff. Patient's blood pressure is elevated but not extreme. In the 150s over 80s range. Patient has an upper respiratory infection is already started on doxycycline white count is 12. Patient's electrolytes are unremarkable. She does not want a test at this time she just wants to go home. She will do 1 at home. My interpretation of her EKG showed a sinus rhythm heart rate is 110 [place] QRS QTC normal no acute ST segment elevation noted. Patient to be discharged home. Close follow-up advised. Blood pressure recheck in 2 days. Patient understands. At this time I do not feel we should start her medication as patient is is having an upper respiratory symptoms blood pressure elevated but not extreme. Differential Diagnosis Differential Diagnoses: The differential diagnosis associated with the presentation includes Hypertensive urgency hypertensive emergency upper respiratory symptoms Admission/Observation Consideration of admission/observation: Escalation of care including admission/observation considered Lab Data [facility] Lab Attestation statement: I reviewed the patient's lab results. 10/13/25 21:28 10/13/25 21:28 Labs: Lab Results 10/13/25 Range/Units 21:28 WBC 12.6 H (4.8-10.8) X10*3/uL RBC 5.05 (4.20-5.50) X10*6/uL Hgb 11.8 L (12.0-16.0) g/dl Hct 38.5 (37.0-47.0) % MCV 76.2 L (80.0-98.0) fL MCH 23.4 L (27.0-33.0) pg MCHC 30.6 L (31.0-35.0) g/dl RDW 16.7 H (11.0-16.0) % Plt Count 320 (160-400) X10*3/uL MPV 10.4 (9.4-12.3) fL Immature Gran % (Auto) 0.8 H (0.0-0.4) % Neut % (Auto) 73.3 H (45-73) % Lymph % (Auto) 17.9 L (20-40) % Cooke % (Auto) 4.5 (2-11) % Eos % (Auto) 3.2 (0-4) % Baso % (Auto) 0.3 (0-2) % Lymph # (Auto) 2.3 (1.2-4.9) X10*3/uL Cooke # (Auto) 0.6 (0.1-1.2) X10*3/uL Eos # (Auto) 0.4 (0.0-0.4) X10*3/uL Baso # (Auto) 0.0 (0.0-0.2) X10*3/uL Abs Immat Gran (auto) 0.10 H (0.00-0.03) X10*3/uL Absolute Neuts (auto) 9.2 H (2.0-8.3) x10*3/uL Absolute Nucleated RBC 0.000 (0.0-0.012) X10*3/uL Nucleated RBC % (auto) 0.0 (0.0-0.2) /100WBC Sodium 140 (135-145) mmol/L Potassium 3.6 (3.3-5.1) mmol/L Chloride 106 (96-108) mmol/L Carbon Dioxide 24 (22-29) mmol/L Anion Gap 14 (12-20) BUN 7 L (9-16) mg/dL Creatinine 0.54 (0.5-1.4) mg/dL Estim Creat Clear Calc 202.1 Estimated GFR > 60 Random Glucose 109 (60-115) mg/dL Calcium 9.2 (8.4-10.2) mg/dL Independent Interpretation I performed an independent interpretation of an: EKG ( sinus heart rate is 110 KS QRS QTC normal no acute ST segment elevation) Chronic Conditions larger in size BMI of 50.4 Discharge Plan Discharge Clinical Impression: Acute upper respiratory infection, Hypertension Patient Disposition: Home, Self-Care Instructions: Hypertension (ED), Upper Respiratory Infection (DC) Referrals: Tania Gill MD [Primary Care Provider, [facility]] - 10/15/25 Referral Note: blood pressure recheck in 24-48 hours Print Language: Kyrgyz
[2025-10-14 01:30] VITALS: BP 170/82
[2025-10-14 01:33] VITALS: BP 170/82; PULSE 95; RESP 18; TEMP 36.2; O2SAT 100
== END 2025-10-14 01:35 | disposition home or self-care (01) ==
PROVIDERS: Emergency Provider Emergency Medicine Emergency Medical Services; PCP Family Medicine
DX: J06.9 Acute upper respiratory infection, unspecified (principal); I10 Essential (primary) hypertension; Z68.43 Body mass index [BMI] 50.0-59.9, adult
CPT/HCPCS: 36415; 80048; 84702; 85025; 93005; 99283; 99284

== ENCOUNTER → 2025-10-13 21:16 | Outpatient (BNV) | payer SELFPAY | PROVIDERS: Emergency Provider Emergency Medicine Emergency Medical Services; PCP Family Medicine; Visit Provider Internal Medicine Cardiovascular Disease | DX: R00.0 Tachycardia, unspecified (principal); I45.10 Unspecified right bundle-branch block | CPT/HCPCS: 93010 ==